=== PATIENT | female | born 1935 | race Caucasian/White ===

== ENCOUNTER 2021-02-13 15:34 | Inpatient (IN) | payer MEDICARE, BC ==
[~2021-02-13] VITALS: Ht 160 cm; Wt 129.3 kg
--- NOTE | 2021-02-13 16:07 | NUR ---
NEENA CALLED VM
--- NOTE | 2021-02-13 16:07 | NUR ---
NEENA CALLED VM
[2021-02-13 16:29] LABS: BASOPHILS % (AUTO) 0.6 % (0.0-2.0); EOSINOPHILS % (AUTO) 1.1 % (0.0-6.0); HEMATOCRIT 36 % (33-45); HEMOGLOBIN 11.5 g/dL (11.5-14.8); LYMPHOCYTES # (AUTO) 0.8 K/uL (0.8-4.8); LYMPHOCYTES % (AUTO) 17.2 % (20.0-44.0); MEAN CORPUSCULAR HGB CONC 32 g/dl (31.0-36.0); MEAN CORPUSCULAR VOLUME 95 fL (82-100); MONOCYTES # (AUTO) 0.4 K/uL (0.1-1.30); MONOCYTES % (AUTO) 9.5 % (2.0-12.0); NEUTROPHILS # (AUTO) 3.3 K/uL (1.8-8.9); NEUTROPHILS % (AUTO) 71.6 % (43.0-81.0); PLATELET COUNT (AUTO) 291 K/uL (150-450); RED BLOOD CELL COUNT(AUTO) 3.82 MIL/uL (4.0-5.2); WHITE BLOOD COUNT (AUTO) 4.6 K/uL (4.3-11.0)
[2021-02-13 16:38] LABS: CALCIUM, SERUM 8.2 mg/dL (8.5-10.1); CARBON DIOXIDE 26 mmol/L (21-32); CHLORIDE 103 mmol/L (98-107); CREATININE 1.3 mg/dL (0.6-1.3); GLUCOSE 110 mg/dL (74-106); SODIUM SERUM 137 mmol/L (136-145); UREA NITROGEN, BLOOD 15 mg/dL (7-18)
[2021-02-13 16:45] LABS: ALANINE AMINOTRANSFERASE 6 U/L (12-78); ALBUMIN 3.1 g/dL (3.4-5.0); ALKALINE PHOSPHATASE 106 U/L (46-116); ASPARTATE AMINOTRANSFERASE 15 U/L (15-37); BILIRUBIN,DIRECT 0.1 mg/dL (0.0-0.2); BILIRUBIN,TOTAL 0.4 mg/dL (0.2-1.0); TOTAL PROTEIN, SERUM 7.2 g/dL (6.4-8.2)
[2021-02-13 16:57] LABS: THYROID STIMULATING HORMONE 0.992 uIU/mL (0.358-3.74)
[2021-02-13 17:41] LABS: ACETAMINOPHEN < 0 ug/ml (10-30); ALCOHOL, BLOOD < 3 mg/dL (0-0)
[2021-02-13] MEDS ORDERED: GABA-532 PO (17:41)
[2021-02-13] MEDS ORDERED: METO25TA4 PO (17:41)
[2021-02-13] MEDS ORDERED: LOSA50TA39 PO (17:41)
[2021-02-13] MEDS ORDERED: QUET25TA PO (17:41)
[2021-02-13] MEDS ORDERED: ATOR40TA PO (17:41)
[2021-02-13] MEDS ORDERED: TRAZ-182 PO (17:41)
[2021-02-13] MEDS ORDERED: CITA20TA16 PO (17:41)
[2021-02-13] MEDS ORDERED: AMLO-212 PO (17:41)
--- NOTE | 2021-02-13 17:58 | NUR ---
CALLED [facility] [phone] IN [place] WILL CAME HERE AFTER.
--- NOTE | 2021-02-13 17:58 | NUR ---
CALLED [facility] [phone] IN [place] WILL CAME HERE AFTER.
[2021-02-13] MEDS ORDERED: DOCU-141 PO (18:07)
[2021-02-13] MEDS ORDERED: FERR325T23 PO (18:07)
[2021-02-13] MEDS ORDERED: ASPI-1169 PO (18:10)
--- NOTE | 2021-02-13 18:19 | NUR ---
GOT BED 214-1
--- NOTE | 2021-02-13 18:19 | NUR ---
GOT BED 214-1
[2021-02-13] MEDS ORDERED: ACETAMINOPHEN ES 500 MG TABLET ONE (19:58)
[2021-02-13] MEDS ORDERED: ACETAMINOPHEN ES 500 MG TABLET PO ONE (20:00)
[2021-02-13] MEDS ORDERED: LORAZEPAM INJ 2 MG/ML VIAL ONE (20:54)
[2021-02-13] MEDS ORDERED: LORAZEPAM INJ 2 MG/ML VIAL IM ONE (21:00)
--- NOTE | 2021-02-13 21:50 | NUR ---
PATIENT BEING TRASNFERED TO 214
--- NOTE | 2021-02-13 21:50 | NUR ---
PATIENT BEING TRASNFERED TO 214
--- NOTE | 2021-02-13 22:02 | NUR ---
REPORT GIVEN TO BRENDA WHEELER
--- NOTE | 2021-02-13 22:02 | NUR ---
REPORT GIVEN TO BRENDA WHEELER
[2021-02-13] MEDS ORDERED: BLOOD SUGAR DIAGNOSTIC 1 EACH STRIP IN ONE (23:00)
[2021-02-13] MEDS ORDERED: MAGNESIUM HYDROXIDE 30 ML UDC PO PRN (23:00)
[2021-02-13] MEDS ORDERED: TEMAZEPAM 7.5 MG CAPSULE PO PRN (23:00)
[2021-02-13] MEDS ORDERED: MAG HYDROX/AL HYDROX/SIMETH 30 ML UDC PO PRN (23:00)
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
[2021-02-14 02:21] VITALS: BP 158/66
[2021-02-14] MEDS ORDERED: Z GUARD REMEDY 4 OZ OINT TP PRN (02:30)
--- NOTE | 2021-02-14 03:40 | NUR ---
GPS RN NOTES: SPOKE WITH MARIA ANTONIA TO RECONCILE PATIENT MED MEDS.
--- NOTE | 2021-02-14 03:40 | NUR ---
GPS RN NOTES: SPOKE WITH MARIA ANTONIA TO RECONCILE PATIENT MED MEDS.
--- NOTE | 2021-02-14 06:37 | NUR ---
GPS RN NOTES: PATIENT IS HOSTILE AND AGGRESSIVE, REFUSED AM LABS, REFUSED DIAPER CHANGE.
--- NOTE | 2021-02-14 06:37 | NUR ---
GPS RN NOTES: PATIENT IS HOSTILE AND AGGRESSIVE, REFUSED AM LABS, REFUSED DIAPER CHANGE.
[2021-02-14 08:00] VITALS: BP 118/59
--- NOTE | 2021-02-14 10:27 | NUR ---
ESTRELLITA Initial Discharge Plan: Patient currently resides at [facility] located at [facility] [place] [address]; ([phone]). Patient would want to return back to her [facility] and Care. ESTRELLITA will work with the MD and treatment team to coordinate appropriate discharge.
--- NOTE | 2021-02-14 10:27 | NUR ---
Treatment Plan: Pt appeared to be confused and disorganized. Refused to sign treatment plan.
--- NOTE | 2021-02-14 10:27 | NUR ---
ESTRELLITA Initial Discharge Plan: Patient currently resides at [facility] located at [facility] [place] [address]; ([phone]). Patient would want to return back to her [facility] and Care. ESTRELLITA will work with the MD and treatment team to coordinate appropriate discharge.
--- NOTE | 2021-02-14 10:27 | NUR ---
Treatment Plan: Pt appeared to be confused and disorganized. Refused to sign treatment plan.
--- NOTE | 2021-02-14 11:29 | NUR ---
ESTRELLITA Family Contact: SW contacted patient's son Arsalan ([phone]) to gather collateral and discuss treatment/discharge plan. Arsalan was unavailable and this health underwriter left a detailed voicemail.
--- NOTE | 2021-02-14 11:29 | NUR ---
ESTRELLITA Family Contact: SW contacted patient's son Arsalan ([phone]) to gather collateral and discuss treatment/discharge plan. Arsalan was unavailable and this card writer hand left a detailed voicemail.
--- NOTE | 2021-02-14 11:45 | NUR ---
ESTRELLITA Family Contact: SW spoke with patient's son Arsalan ([phone]) who stated pt is currently residing at a [facility] and Care but he stated that he would want pt to go to a SNF. Arsalan is the DPOA of the pt and will send the documents to this SW.
--- NOTE | 2021-02-14 11:45 | NUR ---
ESTRELLITA Family Contact: SW spoke with patient's son Arsalan ([phone]) who stated pt is currently residing at a [facility] and Care but he stated that he would want pt to go to a SNF. Arsalan is the DPOA of the pt and will send the documents to this SW.
[2021-02-14] MEDS ORDERED: GABAPENTIN 100 MG CAPSULE PO SCH (13:00)
[2021-02-14] MEDS: Z GUARD REMEDY 4 OZ OINT TP SCH ×2 (13:53→21:49)
--- NOTE | 2021-02-14 14:56 | NUR ---
DPOA Documents: Patient's son Arsalan ([phone]) is the DPOA and sent the documents. SW placed in chart.
--- NOTE | 2021-02-14 14:56 | NUR ---
DPOA Documents: Patient's son Arsalan ([phone]) is the DPOA and sent the documents. SW placed in chart.
[2021-02-14 16:00] VITALS: BP 120/61
[2021-02-14 16:37] LABS: ALBUMIN 2.9 g/dL (3.4-5.0); BILIRUBIN,TOTAL 0.5 mg/dL (0.2-1.0); CALCIUM, SERUM 8.2 mg/dL (8.5-10.1); CREATININE 1.1 mg/dL (0.6-1.3); TOTAL PROTEIN, SERUM 6.6 g/dL (6.4-8.2)
[2021-02-14 16:41] LABS: CHOLESTEROL 134 mg/dL (<200); HDL CHOLESTEROL 58 mg/dL (40-60); LDL 59 mg/dL (0-99); TRIGLYCERIDES 100 mg/dL (30-150)
[2021-02-14] MEDS: LOSARTAN POTASSIUM 50 MG TABLET PO SCH (17:25)
[2021-02-14] MEDS: GABAPENTIN 100 MG CAPSULE PO SCH (17:26)
[2021-02-14] MEDS: QUETIAPINE FUMARATE 25 MG TABLET PO SCH ×2 (17:26→21:44)
[2021-02-14] MEDS: ATORVASTATIN 40 MG TABLET PO SCH (21:44)
[2021-02-15 08:00] VITALS: BP 129/97
[2021-02-15] MEDS: DOCUSATE SODIUM 100 MG CAPSULE PO SCH (08:19)
[2021-02-15] MEDS: FERROUS SULFATE (325 MG) 325 MG/TAB TABLET PO SCH (08:19)
[2021-02-15] MEDS: ASPIRIN 81 MG TAB.CHEW PO SCH (08:19)
[2021-02-15] MEDS: GABAPENTIN 100 MG CAPSULE PO SCH ×2 (08:19→17:30)
[2021-02-15] MEDS: QUETIAPINE FUMARATE 25 MG TABLET PO SCH ×2 (08:20→21:25)
[2021-02-15] MEDS: METOPROLOL SUCCINATE 25 MG TAB.SR.24H PO SCH (08:20)
[2021-02-15] MEDS: LOSARTAN POTASSIUM 50 MG TABLET PO SCH ×2 (08:21→17:30)
[2021-02-15] MEDS: AMLODIPINE BESYLATE 5 MG TABLET PO SCH (08:33)
[2021-02-15] MEDS: Z GUARD REMEDY 4 OZ OINT TP SCH ×2 (08:33→21:26)
--- NOTE | 2021-02-15 08:33 | NUR ---
Patient has psychotropic med and other bp meds in this morning, will hold Norvasc at this time. BP 129/97, p-70. Will continue to monitor.
--- NOTE | 2021-02-15 08:33 | NUR ---
Patient has psychotropic med and other bp meds in this morning, will hold Norvasc at this time. BP 129/97, p-70. Will continue to monitor.
[2021-02-15 16:00] VITALS: BP 139/67
[2021-02-15] MEDS ORDERED: GABAPENTIN 100 MG CAPSULE PO SCH ×2 (17:00→21:00)
[2021-02-15 20:31] VITALS: BP 141/97
[2021-02-15] MEDS: ATORVASTATIN 40 MG TABLET PO SCH (21:25)
[2021-02-16] MEDS: LORAZEPAM 0.5 MG TABLET PO PRN ×2 (01:43→15:03)
--- NOTE | 2021-02-16 01:43 | NUR ---
GPS NOTES: ANXIETY PATIENT IS ANXIOUS, RESTLESS AND AGITATED. PRN ATIVAN 0.5MG PO GIVEN. WILL CONTINUE TO MONITOR FOR PATIENT'S SAFETY.
--- NOTE | 2021-02-16 01:43 | NUR ---
GPS NOTES: ANXIETY PATIENT IS ANXIOUS, RESTLESS AND AGITATED. PRN ATIVAN 0.5MG PO GIVEN. WILL CONTINUE TO MONITOR FOR PATIENT'S SAFETY.
[2021-02-16 08:00] VITALS: BP 133/67
[2021-02-16] MEDS: ASPIRIN 81 MG TAB.CHEW PO SCH (08:57)
[2021-02-16] MEDS: FERROUS SULFATE (325 MG) 325 MG/TAB TABLET PO SCH (08:57)
[2021-02-16] MEDS: AMLODIPINE BESYLATE 5 MG TABLET PO SCH (08:57)
[2021-02-16] MEDS: GABAPENTIN 100 MG CAPSULE PO SCH ×2 (08:57→16:36)
[2021-02-16] MEDS: METOPROLOL SUCCINATE 25 MG TAB.SR.24H PO SCH (08:58)
[2021-02-16] MEDS: DOCUSATE SODIUM 100 MG CAPSULE PO SCH (08:58)
[2021-02-16] MEDS: QUETIAPINE FUMARATE 25 MG TABLET PO SCH ×3 (08:58→21:35)
[2021-02-16] MEDS: LOSARTAN POTASSIUM 50 MG TABLET PO SCH ×2 (08:58→16:36)
[2021-02-16] MEDS: Z GUARD REMEDY 4 OZ OINT TP SCH ×2 (09:03→21:13)
[2021-02-16 16:00] VITALS: BP 136/56
[2021-02-16] MEDS: ACETAMINOPHEN 325 MG TABLET PO PRN (16:52)
--- NOTE | 2021-02-16 16:53 | NUR ---
HEADACHE-TYLENOL GIVEN PATIENT COMPLAINS OF HEADACHE. TYLENOL 650MG PO GIVEN NEEDED. WILL MONITOR.
--- NOTE | 2021-02-16 16:53 | NUR ---
HEADACHE-TYLENOL GIVEN PATIENT COMPLAINS OF HEADACHE. TYLENOL 650MG PO GIVEN NEEDED. WILL MONITOR.
[2021-02-16 20:12] VITALS: BP 108/60
[2021-02-16 20:16] VITALS: BP 108/60
[2021-02-16] MEDS: ATORVASTATIN 40 MG TABLET PO SCH (21:43)
--- NOTE | 2021-02-16 21:45 | NUR ---
GPS RN NOTE: REFUSED SKIN ASSESSMENT PATIENT REFUSED FULL BODY SKIN ASSESSMENT X3 TONIGHT. GOT AGITATED, PARANOID, AGGRESSIVE TO WARDS STAFF, YELLING. PATIENT IS UNCOOPERATIVE WITH SKIN ASSESSMENT. VISIBLY NOTED SKIN DISCOLORATION TO BOTH ARMS BUT UNABLE TO ASSESS FULL BODY DUE TO PATIENT'S AGGRESSIVE BEHAVIOR.
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
[2021-02-17 08:00] VITALS: BP 127/69
[2021-02-17] MEDS: AMLODIPINE BESYLATE 5 MG TABLET PO SCH (08:14)
[2021-02-17] MEDS: DOCUSATE SODIUM 100 MG CAPSULE PO SCH (08:14)
[2021-02-17] MEDS: FERROUS SULFATE (325 MG) 325 MG/TAB TABLET PO SCH (08:14)
[2021-02-17] MEDS: METOPROLOL SUCCINATE 25 MG TAB.SR.24H PO SCH (08:15)
[2021-02-17] MEDS: LOSARTAN POTASSIUM 50 MG TABLET PO SCH ×2 (08:15→16:21)
[2021-02-17] MEDS: QUETIAPINE FUMARATE 25 MG TABLET PO SCH ×3 (08:16→20:40)
[2021-02-17] MEDS: GABAPENTIN 100 MG CAPSULE PO SCH ×2 (08:16→16:20)
[2021-02-17] MEDS: ASPIRIN 81 MG TAB.CHEW PO SCH (08:16)
[2021-02-17] MEDS: Z GUARD REMEDY 4 OZ OINT TP SCH ×2 (08:20→20:42)
--- NOTE | 2021-02-17 13:24 | NUR ---
PT'S HANDS L+R SHOW DISCOLORATION. PICTURE TAKEN AND PLACED IN THE CHART. PT'S SON STATED THAT DISCOLORATION WAS PRESENT SINCE 02/16/21. WOUND CARE CONSULT ENTERED.
--- NOTE | 2021-02-17 13:24 | NUR ---
PT'S HANDS L+R SHOW DISCOLORATION. PICTURE TAKEN AND PLACED IN THE CHART. PT'S SON STATED THAT DISCOLORATION WAS PRESENT SINCE 02/16/21. WOUND CARE CONSULT ENTERED.
[2021-02-17 16:00] VITALS: BP 123/66
[2021-02-17 20:00] VITALS: BP 138/70
[2021-02-17] MEDS: ATORVASTATIN 40 MG TABLET PO SCH (21:10)
[2021-02-18 08:00] VITALS: BP 137/69
[2021-02-18] MEDS: Z GUARD REMEDY 4 OZ OINT TP SCH ×2 (08:11→20:30)
[2021-02-18] MEDS: AMLODIPINE BESYLATE 5 MG TABLET PO SCH (08:14)
[2021-02-18] MEDS: GABAPENTIN 100 MG CAPSULE PO SCH ×2 (08:14→17:00)
[2021-02-18] MEDS: ASPIRIN 81 MG TAB.CHEW PO SCH (08:14)
[2021-02-18] MEDS: QUETIAPINE FUMARATE 25 MG TABLET PO SCH ×4 (08:15→20:30)
[2021-02-18] MEDS: METOPROLOL SUCCINATE 25 MG TAB.SR.24H PO SCH (08:15)
[2021-02-18] MEDS: FERROUS SULFATE (325 MG) 325 MG/TAB TABLET PO SCH (08:16)
[2021-02-18] MEDS: DOCUSATE SODIUM 100 MG CAPSULE PO SCH (08:16)
[2021-02-18] MEDS: LOSARTAN POTASSIUM 50 MG TABLET PO SCH ×2 (08:16→16:59)
--- NOTE | 2021-02-18 09:10 | NUR ---
DPOA Documents: Patient's son Arsalan ([phone]) is the DPOA and was concerned in regards to patient's care at the hospital. SW explained that pt has been very aggressive physically and verbally. Son is not understanding of patient's current condition declining. Son wants pt to be discharged. SW explained pt would need a safe place. He stated he is trying to find her an Assisted Living.
--- NOTE | 2021-02-18 09:10 | NUR ---
DPOA Documents: Patient's son Arsalan ([phone]) is the DPOA and was concerned in regards to patient's care at the hospital. SW explained that pt has been very aggressive physically and verbally. Son is not understanding of patient's current condition declining. Son wants pt to be discharged. SW explained pt would need a safe place. He stated he is trying to find her an Assisted Living.
--- NOTE | 2021-02-18 11:54 | NUR ---
SNF Referral: SW sent clinicals to [facility] to vinh Osuna ([phone]) for placement. SW sent H & P, progress notes, and medication list.
--- NOTE | 2021-02-18 11:54 | NUR ---
SNF Referral: SW sent clinicals to [facility] to vinh Osuna ([phone]) for placement. SW sent H & P, progress notes, and medication list.
--- NOTE | 2021-02-18 12:54 | NUR ---
SNF Contact: SW received a call from [facility] to vinh Osuna ([phone]) who stated they cannot accept pt due to behavioral issues.
--- NOTE | 2021-02-18 12:54 | NUR ---
SNF Contact: SW received a call from [facility] to vinh Osuna ([phone]) who stated they cannot accept pt due to behavioral issues.
--- NOTE | 2021-02-18 13:29 | NUR ---
Court Hearing: Patient's court hearing for 3370 was today and it was upheld for GD.
--- NOTE | 2021-02-18 13:29 | NUR ---
Court Hearing: Patient's court hearing for 5610 was today and it was upheld for GD.
--- NOTE | 2021-02-18 13:31 | NUR ---
SNF Referral: ESTRELLITA sent clinicals to Zoey justice from [facility] ([phone]) for placement option. ESTRELLITA sent H & P, progress notes, and medication list.
--- NOTE | 2021-02-18 13:31 | NUR ---
SNF Referral: ESTRELLITA sent clinicals to Zoey justice from [facility] ([phone]) for placement option. ESTRELLITA sent H & P, progress notes, and medication list.
--- NOTE | 2021-02-18 15:15 | NUR ---
SNF Contact: SW spoke with Zoey justice from [facility] ([phone]) who stated they are considering to accept pt.
--- NOTE | 2021-02-18 15:15 | NUR ---
SNF Contact: SW spoke with Zoey justice from [facility] ([phone]) who stated they are considering to accept pt.
--- NOTE | 2021-02-18 15:15 | NUR ---
SW Family Contact: SW spoke with patient's DPOA Arsalan ([phone]) and stated pt is accepted at [facility] ([phone]). He stated that he is leaning towards on finding the pt a Board and Care.
--- NOTE | 2021-02-18 15:15 | NUR ---
SW Family Contact: SW spoke with patient's DPOA Arsalan ([phone]) and stated pt is accepted at [facility] ([phone]). He stated that he is leaning towards on finding the pt a Board and Care.
[2021-02-18 16:00] VITALS: BP 113/55
[2021-02-18 17:52] LABS: BASOPHILS % (AUTO) 0.5 % (0.0-2.0); EOSINOPHILS % (AUTO) 0.6 % (0.0-6.0); HEMATOCRIT 36 % (33-45); HEMOGLOBIN 11.6 g/dL (11.5-14.8); LYMPHOCYTES % (AUTO) 16.1 % (20.0-44.0); MEAN CORPUSCULAR HGB CONC 33 g/dl (31.0-36.0); MEAN CORPUSCULAR VOLUME 94 fL (82-100); MONOCYTES # (AUTO) 0.6 K/uL (0.1-1.30); MONOCYTES % (AUTO) 9.1 % (2.0-12.0); NEUTROPHILS # (AUTO) 4.6 K/uL (1.8-8.9); NEUTROPHILS % (AUTO) 73.7 % (43.0-81.0); PLATELET COUNT (AUTO) 266 K/uL (150-450); WHITE BLOOD COUNT (AUTO) 6.2 K/uL (4.3-11.0)
[2021-02-18 18:31] LABS: BILIRUBIN,TOTAL 0.6 mg/dL (0.2-1.0); CALCIUM, SERUM 8.2 mg/dL (8.5-10.1); CREATININE 1.1 mg/dL (0.6-1.3); POTASSIUM 3.9 mmol/L (3.5-5.1); TOTAL PROTEIN, SERUM 6.9 g/dL (6.4-8.2)
--- NOTE | 2021-02-18 20:30 | NUR ---
RN NOTE: REFUSED SKIN ASSESSMENT PATIENT REFUSED FULL BODY SKIN REASSESSMENT ENCOURAGED X3 . GOT AGITATED, PARANOID, AGGRESSIVE TO WARDS STAFF, YELLING, SCREAMING AND KEEP REAPITING TO THE PRIMARY NURSE GET OUT OF FROM MY HOUSE . REOERITION PROVIDED TO THE PATIENT YOUR IN THE HOSPITAL , PT. REFUSED TO CARE , PATIENT IS UNCOOPERATIVE WITH SKIN ASSESSMENT. PT. SKIN IS VERY FRAGILE EASILY TO SKIN DISCOLORATIONS AND EASILY TO SKIN TEAR.VISIBLY NOTED SELF INFLICTED MULTIPLE SKIN DISCOLORATIONS BODY AREAS BUT UNABLE TO ASSESS FULL BODY DUE TO PATIENT'S AGGRESSIVE BEHAVIOR. PER PT. MY SKIN IS FINE I NO NEED ANY SKIN ASSESSMENT.
[2021-02-18 21:10] VITALS: BP 124/71
[2021-02-18] MEDS: ATORVASTATIN 40 MG TABLET PO SCH (21:38)
[2021-02-18] MEDS: LORAZEPAM 0.5 MG TABLET PO PRN (21:57)
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
[2021-02-19] MEDS: Z GUARD REMEDY 4 OZ OINT TP SCH ×2 (08:59→21:57)
[2021-02-19 09:00] VITALS: BP 123/48
[2021-02-19] MEDS: METOPROLOL SUCCINATE 25 MG TAB.SR.24H PO SCH (09:00)
[2021-02-19] MEDS: LOSARTAN POTASSIUM 50 MG TABLET PO SCH ×2 (09:00→16:51)
[2021-02-19] MEDS: AMLODIPINE BESYLATE 5 MG TABLET PO SCH (09:00)
--- NOTE | 2021-02-19 09:07 | NUR ---
WOUND CARE CONSULT: LIMITED ASSESSMENT DUE TO PT FEARFUL AND VERY SENSITIVE TO TOUCH. PT COMBATIVE AT TIMES PER STAFF. DRY SKIN NOTED TO HANDS AND ARMS WITH DISCOLORATION. ADMISSION PHOTOS INDICATE RASHES TO SKIN FOLDS. RECOMMENDATIONS MADE FOR SKIN PROTECTION. DISCUSSED WITH NURSING STAFF. MD IN AGREEMENT WITH PLAN OF CARE.
[2021-02-19] MEDS: DOCUSATE SODIUM 100 MG CAPSULE PO SCH (09:10)
[2021-02-19] MEDS: ASPIRIN 81 MG TAB.CHEW PO SCH (09:10)
[2021-02-19] MEDS: FERROUS SULFATE (325 MG) 325 MG/TAB TABLET PO SCH (09:11)
[2021-02-19] MEDS: GABAPENTIN 100 MG CAPSULE PO SCH ×2 (09:11→16:51)
[2021-02-19] MEDS: QUETIAPINE FUMARATE 25 MG TABLET PO SCH ×4 (09:13→21:57)
--- NOTE | 2021-02-19 09:44 | NUR ---
ESTRELLITA Note: SW spoke with patient and patient appeared to be paranoid. Patient stated "medical doctor told me to open my legs, why the fuck would he want to do that". Patient was verbally abusive.
[2021-02-19 11:18] VITALS: BP 123/48
[2021-02-19] MEDS: MINERAL OIL/PETROLATUM,WHITE 120 GM JAR TP SCH (11:39)
--- NOTE | 2021-02-19 14:17 | NUR ---
Coordination of Care: Per patient's son Arsalan request, [facility] accepted pt. ESTRELLITA spoke with Bryanna ([phone]) who stated that they are accepting pt. ESTRELLITA sent H & P, labs, and medication list. Per Bryanna's request ([phone]) ESTRELLITA sent clinicals to [facility] ([phone]) (F:[phone]).
--- NOTE | 2021-02-19 14:17 | NUR ---
Coordination of Care: Per patient's son Arsalan request, [facility] accepted pt. ESTRELLITA spoke with Bryanna ([phone]) who stated that they are accepting pt. ESTRELLITA sent H & P, labs, and medication list. Per Bryanna's request ([phone]) ESTRELLITA sent clinicals to [facility] ([phone]) (F:[phone]).
--- NOTE | 2021-02-19 15:27 | NUR ---
HH: ESTRELLITA coordinated with Home health [facility] admin Mary ([phone]) who stated she will send a nurse on 02/22/21.
--- NOTE | 2021-02-19 15:27 | NUR ---
HH: ESTRELLITA coordinated with Home health [facility] admin Mary ([phone]) who stated she will send a nurse on 02/22/21.
[2021-02-19 16:00] VITALS: BP 150/70
--- NOTE | 2021-02-19 16:45 | NUR ---
AT APPROXIMATELY 1630 THE PATIENT CALLED COMPLAINING OF FINGER PAIN STATING " I THINK I BROKE MY FINGER ". UPON FURTHER ASSESSMENT, THE THIRD DIGIT ON HER LEFT HAND APPEARED SWOLLEN AND OFF MIDLINE. DR COE WAS IMMEDIATELY CONTACTED AND ORDERED A STAT LEFT HAND XRAY. PT GIVEN TYLENOL 650MG PRN FOR PAIN. NURSING HYDROBLASTER AND TRESTLE MECHANIC INFORMED. PT'S FAMILY MEMBER (SON DELIO) WAS CALLED AND INFORMED OF FINDING AND ASSESSMENT TO WHICH HE WAS GRATEFUL AND EXPECTS TO BE CONTACTED WITH RESULTS AND FURTHER THERAPY ORDERS IF ANY ARE GIVEN. INCIDENT REPORT COMPLETED AND FILED. PICTURE TAKEN AND PLACED IN PT'S CHART. AWAITING XRAY REPORT IN ORDER TO INFORM MD. WILL ENDORSE IN COMING SHIFT PERTINENTLY.
--- NOTE | 2021-02-19 16:45 | NUR ---
AT APPROXIMATELY 1630 THE PATIENT CALLED COMPLAINING OF FINGER PAIN STATING " I THINK I BROKE MY FINGER ". UPON FURTHER ASSESSMENT, THE THIRD DIGIT ON HER LEFT HAND APPEARED SWOLLEN AND OFF MIDLINE. DR COE WAS IMMEDIATELY CONTACTED AND ORDERED A STAT LEFT HAND XRAY. PT GIVEN TYLENOL 650MG PRN FOR PAIN. NURSING SEALING MACHINE OPERATOR AND CONTENT CREATION MANAGER INFORMED. PT'S FAMILY MEMBER (SON DELIO) WAS CALLED AND INFORMED OF FINDING AND ASSESSMENT TO WHICH HE WAS GRATEFUL AND EXPECTS TO BE CONTACTED WITH RESULTS AND FURTHER THERAPY ORDERS IF ANY ARE GIVEN. INCIDENT REPORT COMPLETED AND FILED. PICTURE TAKEN AND PLACED IN PT'S CHART. AWAITING XRAY REPORT IN ORDER TO INFORM MD. WILL ENDORSE IN COMING SHIFT PERTINENTLY.
[2021-02-19] MEDS: ACETAMINOPHEN 325 MG TABLET PO PRN (16:51)
[2021-02-19] MEDS: CLOTRIMAZOLE 1% 15 GM TUBE TP SCH (16:53)
--- NOTE | 2021-02-19 18:52 | NUR ---
DR BARNES CONTACTED VIA [employer] IN ORDER TO MAKE HIM AWARE OF HAND XRAY REPORT. AWAITING CALL BACK.
--- NOTE | 2021-02-19 18:52 | NUR ---
DR BARNES CONTACTED VIA [employer] IN ORDER TO MAKE HIM AWARE OF HAND XRAY REPORT. AWAITING CALL BACK.
--- NOTE | 2021-02-19 19:55 | NUR ---
RN NOTES : PAGED EPIC EXCHANGE REGARDING ABOUT PT. LEFT HAND THIRD DIGIT SWOLLEN FINGER LEFT MESSAGE AWAITING MD CALL BACK .
--- NOTE | 2021-02-19 19:55 | NUR ---
RN NOTES : PAGED EPIC EXCHANGE REGARDING ABOUT PT. LEFT HAND THIRD DIGIT SWOLLEN FINGER LEFT MESSAGE AWAITING MD CALL BACK .
[2021-02-19 20:30] VITALS: BP 122/65
[2021-02-19] MEDS ORDERED: IBUPROFEN 600 MG TABLET PO ONE (20:30)
--- NOTE | 2021-02-19 20:33 | NUR ---
GPS RN NOTE: DR. WALLER CALLED BACK, REVIWED PATIENT'S LEFT HAND/FINGER X RAY RESULTS, LABS, MEDICATION LIST AND PATIENT' HISTORY. CONTINUOUS CRUSHER OPERATOR READ LEFT HAND/FINGER X RAY RESULTS TO DR. WALLER. MD ORDERED IBUPROFEN 600 MG PO ONCE AT THIS TIME FOR PAIN MANAGEMENT, PER MD IF IBUPROFEN IS EFFECTIVE, THEN CONTINUE WITH IBUPROFEN 600 MG PO Q6H PRN FOR LEFT HAND/FINGER PAIN. ORDER NOTED AND CARRIED OUT. ALSO VERIFIED WITH MD IF ORTHO CONSULT NEEDED, PER DR. WALLER TO FOLLOW UP WITH AM MD TOMORROW FOR FURTHER INTERVENTIONS. NO ORTHO CONSULT ORDER AT THIS TIME. CONTINUOUS CRUSHER OPERATOR CALLED PATIENT'S SON ASMITA AT [phone] AND UPDATED ABOUT PATIENT'S CURRENT HEALTH CONDITION, BEHAVIOR AND LEFT HAND/FINGER X RAY RESULTS. WILL OFFER IBUPROFEN ORDERED BY FOR PAIN MANAGEMENT. WILL CONTINUE TO MONITOR THE PATIENT CLOSELY FOR ANY CHANGE OF CONDITION.
--- NOTE | 2021-02-19 20:33 | NUR ---
GPS RN NOTE: DR. WALLER CALLED BACK, REVIWED PATIENT'S LEFT HAND/FINGER X RAY RESULTS, LABS, MEDICATION LIST AND PATIENT' HISTORY. PARTS SALES MANAGER READ LEFT HAND/FINGER X RAY RESULTS TO DR. WALLER. MD ORDERED IBUPROFEN 600 MG PO ONCE AT THIS TIME FOR PAIN MANAGEMENT, PER MD IF IBUPROFEN IS EFFECTIVE, THEN CONTINUE WITH IBUPROFEN 600 MG PO Q6H PRN FOR LEFT HAND/FINGER PAIN. ORDER NOTED AND CARRIED OUT. ALSO VERIFIED WITH MD IF ORTHO CONSULT NEEDED, PER DR. WALLER TO FOLLOW UP WITH AM MD TOMORROW FOR FURTHER INTERVENTIONS. NO ORTHO CONSULT ORDER AT THIS TIME. PARTS SALES MANAGER CALLED PATIENT'S SON ASMITA AT [phone] AND UPDATED ABOUT PATIENT'S CURRENT HEALTH CONDITION, BEHAVIOR AND LEFT HAND/FINGER X RAY RESULTS. WILL OFFER IBUPROFEN ORDERED BY FOR PAIN MANAGEMENT. WILL CONTINUE TO MONITOR THE PATIENT CLOSELY FOR ANY CHANGE OF CONDITION.
--- NOTE | 2021-02-19 20:52 | NUR ---
RN NOTES: PT. C/O PAIN ON LEFT HAND THIRD DIGT, BUT UNABLE SCALE PAIN DUE TO CONFUSION , PRN MOTRIN 600 MG X1 PO GIVEN , PER MD ODERS WILL CONTINUE TO MONITOR.
--- NOTE | 2021-02-19 21:52 | NUR ---
RN NOTES: MOTRIN 600 MG PO EFFECTIVE AT THIS TIME , PER PT. STATES I AM FEELING BETTER AT THIS TIME . WILL CONTINUE TO MONITOR.
--- NOTE | 2021-02-19 21:52 | NUR ---
RN NOTES: MOTRIN 600 MG PO EFFECTIVE AT THIS TIME , PER PT. STATES I AM FEELING BETTER AT THIS TIME . WILL CONTINUE TO MONITOR.
[2021-02-19] MEDS: ATORVASTATIN 40 MG TABLET PO SCH (21:58)
--- NOTE | 2021-02-19 21:59 | NUR ---
RN NOTES: DR. ATKINSON NOTIFIED REGARDING ABOUT PT. LEFT HAND / FINGER RESULTS , NO NEW ORDERS GIVEN AT THIS TIME .
--- NOTE | 2021-02-19 21:59 | NUR ---
RN NOTES: DR. ATKINSON NOTIFIED REGARDING ABOUT PT. LEFT HAND / FINGER RESULTS , NO NEW ORDERS GIVEN AT THIS TIME .
--- NOTE | 2021-02-19 23:10 | NUR ---
RN NOTES: PT.COMFORTLY RESTING ,SLEEPING ,SNORING ,AT THIS TIME , NO ACUTE DISTRESS NOTED , WILL CONTINUE TO MONITOR.
--- NOTE | 2021-02-19 23:10 | NUR ---
RN NOTES: PT.COMFORTLY RESTING ,SLEEPING ,SNORING ,AT THIS TIME , NO ACUTE DISTRESS NOTED , WILL CONTINUE TO MONITOR.
--- NOTE | 2021-02-20 05:56 | NUR ---
RN NOTE: PATIENT SLEEPING COMFORTABLY IN HER ROOM, DURING WEBSPHERE DEVELOPER PT. SLEPT WELL 8 HOURS, NO ACUTE DISTRESS NOTED, NO CHANGE OF CONDTION NOTED, WILL ENDORSE TO AM RN FOR CONTINUITY OF CARE.
--- NOTE | 2021-02-20 05:56 | NUR ---
RN NOTE: PATIENT SLEEPING COMFORTABLY IN HER ROOM, DURING ACTUARIAL CONSULTANT PT. SLEPT WELL 8 HOURS, NO ACUTE DISTRESS NOTED, NO CHANGE OF CONDTION NOTED, WILL ENDORSE TO AM RN FOR CONTINUITY OF CARE.
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
[2021-02-20 08:00] VITALS: BP 116/60
--- NOTE | 2021-02-20 09:02 | NUR ---
ESTRELLITA Note: BRENDA Sarah re-checked patient's weight and patient is 191.5 lb.
--- NOTE | 2021-02-20 09:02 | NUR ---
ESTRELILTA Note: BRENDA Sarah re-checked patient's weight and patient is 191.5 lb.
[2021-02-20] MEDS: DOCUSATE SODIUM 100 MG CAPSULE PO SCH (09:18)
[2021-02-20] MEDS: FERROUS SULFATE (325 MG) 325 MG/TAB TABLET PO SCH (09:18)
[2021-02-20] MEDS: GABAPENTIN 100 MG CAPSULE PO SCH ×2 (09:18→17:24)
[2021-02-20] MEDS: AMLODIPINE BESYLATE 5 MG TABLET PO SCH (09:19)
[2021-02-20] MEDS: METOPROLOL SUCCINATE 25 MG TAB.SR.24H PO SCH (09:19)
[2021-02-20] MEDS: LOSARTAN POTASSIUM 50 MG TABLET PO SCH ×2 (09:19→17:24)
[2021-02-20] MEDS: ASPIRIN 81 MG TAB.CHEW PO SCH (09:19)
[2021-02-20] MEDS: QUETIAPINE FUMARATE 25 MG TABLET PO SCH ×4 (09:21→20:38)
[2021-02-20] MEDS: MINERAL OIL/PETROLATUM,WHITE 120 GM JAR TP SCH (12:11)
[2021-02-20] MEDS: Z GUARD REMEDY 4 OZ OINT TP SCH ×2 (12:11→20:39)
[2021-02-20] MEDS: CLOTRIMAZOLE 1% 15 GM TUBE TP SCH ×2 (12:18→17:25)
[2021-02-20] MEDS: ACETAMINOPHEN 325 MG TABLET PO PRN (13:07)
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
[2021-02-20] MEDS: IBUPROFEN 600 MG TABLET PO PRN (14:43)
[2021-02-20 16:00] VITALS: BP 115/63
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
[2021-02-20 20:00] VITALS: BP 127/66
[2021-02-20] MEDS: ATORVASTATIN 40 MG TABLET PO SCH (21:12)
[2021-02-21] MEDS: IBUPROFEN 600 MG TABLET PO PRN (06:25)
--- NOTE | 2021-02-21 06:56 | NUR ---
RN NOTES: PT. C/O PAIN 3/10 PRN MOTRIN 600MG PO GIVEN , PER PT. REQUEST WILL CONTINUE TO MONITOR.
--- NOTE | 2021-02-21 06:56 | NUR ---
RN NOTES: PT. C/O PAIN 3/10 PRN MOTRIN 600MG PO GIVEN , PER PT. REQUEST WILL CONTINUE TO MONITOR.
--- NOTE | 2021-02-21 07:02 | NUR ---
RN NOTES: PT. REFUSED SKIN ASSESSMENT , ENCOURAGED X 3 RISKS AND BENEFITS EXPLINED , PT. STRONGLY REFUSED , PT. BEHAVIOR UNCOOPERATIVE ANXIOUS , EASILY AGITATED, PER PT.STATES MY SKIN IS FINE DONT TOUCH ME,LEAVE ME ALONE , PT. REFUSED TO APPLY SKIN BARRIER, SKIN MOISTURES CREAM., WILL ENDORSE TO AM NURSE FOR CONTINUITY OF CARE.
--- NOTE | 2021-02-21 07:17 | NUR ---
RN NOTES: COVID ANTIGEN SPECIMEN COLLECT AND SEND TO THE LAB.
--- NOTE | 2021-02-21 07:17 | NUR ---
RN NOTES: COVID ANTIGEN SPECIMEN COLLECT AND SEND TO THE LAB.
[2021-02-21 08:00] VITALS: BP 114/55
--- NOTE | 2021-02-21 08:49 | NUR ---
Called the office of Dr. Garza for the consult and spoke to the compressor operator adjuster Teresita and said she will inform
--- NOTE | 2021-02-21 08:49 | NUR ---
Called the office of Dr. Garza for the consult and spoke to the synthetic resin operator Teresita and said she will inform
--- NOTE | 2021-02-21 09:03 | NUR ---
ESTRELLITA Family Contact: ESTRELLITA spoke with patient's DPOA Arsalan ([phone]) and listened to his concerns. He stated that he wants pt discharged soon. ESTRELLITA explained that orthopedic needs to evaluate pt to rule out any issues regarding her hand.
--- NOTE | 2021-02-21 09:03 | NUR ---
ESTRELLITA Family Contact: ESTRELLITA spoke with patient's DPOA Arsalan ([phone]) and listened to his concerns. He stated that he wants pt discharged soon. ESTRELLITA explained that orthopedic needs to evaluate pt to rule out any issues regarding her hand.
[2021-02-21] MEDS: FERROUS SULFATE (325 MG) 325 MG/TAB TABLET PO SCH (09:04)
[2021-02-21] MEDS: QUETIAPINE FUMARATE 25 MG TABLET PO SCH ×2 (09:04→12:35)
[2021-02-21] MEDS: GABAPENTIN 100 MG CAPSULE PO SCH (09:04)
[2021-02-21] MEDS: ASPIRIN 81 MG TAB.CHEW PO SCH (09:04)
[2021-02-21] MEDS: METOPROLOL SUCCINATE 25 MG TAB.SR.24H PO SCH (09:05)
[2021-02-21] MEDS: AMLODIPINE BESYLATE 5 MG TABLET PO SCH (09:05)
[2021-02-21] MEDS: LOSARTAN POTASSIUM 50 MG TABLET PO SCH (09:05)
[2021-02-21] MEDS: DOCUSATE SODIUM 100 MG CAPSULE PO SCH (09:05)
[2021-02-21] MEDS: CLOTRIMAZOLE 1% 15 GM TUBE TP SCH (09:23)
[2021-02-21] MEDS: MINERAL OIL/PETROLATUM,WHITE 120 GM JAR TP SCH (09:23)
[2021-02-21] MEDS: Z GUARD REMEDY 4 OZ OINT TP SCH (09:23)
--- NOTE | 2021-02-21 10:04 | NUR ---
Individual Therapy: SW met with patient to conduct brief therapy. Patient presented with low mood and stated "I just want to go home". Patient did appear to be improving and has not been verbally abusive.
--- NOTE | 2021-02-21 10:55 | NUR ---
ESTRELLITA Family Contact: ESTRELLITA and Rigo RN spoke with patient's DPOA Arsalan ([phone]) in regards to Orthopedic recommendation. Explained to family of Dr. Garza's recommendation that patient's finger has been dislocated and the doctor would need to locate the finger bedside or pt would need surgery. Arsalan verbally gave consent that he would want the doctor to treat the pt bedside and not surgery. ESTRELLITA also sent Arsalan consent form to sign.
--- NOTE | 2021-02-21 10:55 | NUR ---
ESTRELLITA Family Contact: ESTRELLITA and Rigo RN spoke with patient's DPOA Arsalan ([phone]) in regards to Orthopedic recommendation. Explained to family of Dr. Garza's recommendation that patient's finger has been dislocated and the doctor would need to locate the finger bedside or pt would need surgery. Arsalan verbally gave consent that he would want the doctor to treat the pt bedside and not surgery. ESTRELLITA also sent Arsalan consent form to sign.
[2021-02-21] MEDS ORDERED: LIDOCAINE 1% INJ 50 ML MDV IJ ONE (11:00)
--- NOTE | 2021-02-21 11:00 | NUR ---
Around 11am, Dr. Garza did a closed reduction under finger block left long finger dislocation at bedside, consents obtained from [facility], patient made aware of the situation and agreed to do the procedure. Patient tolerated procedure well, left middle finger splinted with tongue depressor and taped by Dr. Garza (Ortho), patient verbalized gratitude, preferred not to have a pain medication for now, will monitor closely for any changes. Patient also preferred not to have photo taken of the left middle finger, explained risks and benefits thrice and hospital protocol, still refused, respected patient's wishes.
--- NOTE | 2021-02-21 11:00 | NUR ---
Around 11am, Dr. Garza did a closed reduction under finger block left long finger dislocation at bedside, consents obtained from [facility], patient made aware of the situation and agreed to do the procedure. Patient tolerated procedure well, left middle finger splinted with tongue depressor and taped by Dr. Garza (Ortho), patient verbalized gratitude, preferred not to have a pain medication for now, will monitor closely for any changes. Patient also preferred not to have photo taken of the left middle finger, explained risks and benefits thrice and hospital protocol, still refused, respected patient's wishes.
--- NOTE | 2021-02-21 11:08 | NUR ---
Consent Form: Patient's son RIDGE Arriaza ([phone]) sent the consent for bedside procedure. Addendum: 02/21/21 at 1121 by ESTRELLITA KIRBY Placed in patient's chart.
--- NOTE | 2021-02-21 11:08 | NUR ---
Consent Form: Patient's son RIDGE Arriaza ([phone]) sent the consent for bedside procedure. Addendum: 02/21/21 at 1121 by ESTRELLITA KIRBY Placed in patient's chart.
--- NOTE | 2021-02-21 13:15 | NUR ---
Called Dr. Garza's office (phone: [phone]) to relay xray results of the left hand s/p closed reduction of the left finger, spoke to Nuvia and she said she will page Dr. Garza, waiting for MD to call back.
--- NOTE | 2021-02-21 13:15 | NUR ---
Called Dr. Garza's office (phone: [phone]) to relay xray results of the left hand s/p closed reduction of the left finger, spoke to Nuvia and she said she will page Dr. Garza, waiting for MD to call back.
--- NOTE | 2021-02-21 14:07 | NUR ---
Called Dr. Garza's office (phone: [phone]) to follow up regarding relaying xray results of the left hand s/p closed reduction of the left finger, spoke to Erika and she said Dr. Garza is doing surgery right now, will follow up.
--- NOTE | 2021-02-21 14:07 | NUR ---
Called Dr. Garza's office (phone: [phone]) to follow up regarding relaying xray results of the left hand s/p closed reduction of the left finger, spoke to Erika and she said Dr. Garza is doing surgery right now, will follow up.
--- NOTE | 2021-02-21 15:05 | NUR ---
Called Dr. Garza's office (phone: [phone]) spoke to Senthil and she said Dr. Garza is still doing surgery and she does not know how many surgeries he's doing and does not know what time he will finish. Senthil gave Dr. Garza's personal number, attempted to call number and left a voice message, waiting for Dr. Garza to call back, will follow up.
--- NOTE | 2021-02-21 15:05 | NUR ---
Called Dr. Garza's office (phone: [phone]) spoke to Senthil and she said Dr. Garza is still doing surgery and she does not know how many surgeries he's doing and does not know what time he will finish. Senthil gave Dr. Garza's personal number, attempted to call number and left a voice message, waiting for Dr. Garza to call back, will follow up.
--- NOTE | 2021-02-21 15:30 | NUR ---
Received a call back from Dr. Garza, xray of left hand impressions read to MD with new orders as follows: 1. patient cleared for discharge today, 2. make a follow up appointment with Dr. Garza in 1-2 weeks at [place] office (social work manager made aware), 3. keep the splint on, orders noted and carried out. Xray results of left hand and consent form (needs signature and clarification from MD) faxed to Dr. Garza's office ([phone]).
--- NOTE | 2021-02-21 15:30 | NUR ---
Received a call back from Dr. Garza, xray of left hand impressions read to MD with new orders as follows: 1. patient cleared for discharge today, 2. make a follow up appointment with Dr. Garza in 1-2 weeks at [place] office (rn social services made aware), 3. keep the splint on, orders noted and carried out. Xray results of left hand and consent form (needs signature and clarification from MD) faxed to Dr. Garza's office ([phone]).
--- NOTE | 2021-02-21 15:33 | NUR ---
SW Discharge Note: Patient will be discharged to [facility] located at [address], [place] [address]; ([phone]). Patients son Bryan Fabian ([phone]) will pickler helper pt at 4PM. Patients son RIDGE Arriaza ([phone]) is aware and agreeable. Admin Bryanna ([phone]) is accepting pt. Patient denies visual/auditory hallucinations. Patient denies suicidal or homicidal ideation. Patient will follow up with Dr. Harry Garcia who will monitor and provide her psychotropic medications at the facility. SW coordinate with [facility] admin Mary ([phone]) who stated will send a nurse on 02/22/21. Patient will follow up with Dr. Garza located at [address], [place] [address]; , SW notified of this to patient's son Arsalan SABILLON ([phone]). Patient presents with euthymic mood and congruent affect.
--- NOTE | 2021-02-21 15:33 | NUR ---
SW Discharge Note: Patient will be discharged to [facility] located at [address], [place] [address]; ([phone]). Patients son Bryan Fabian ([phone]) will slat pickler pt at 4PM. Patients son RIDGE Arriaza ([phone]) is aware and agreeable. Admin Bryanna ([phone]) is accepting pt. Patient denies visual/auditory hallucinations. Patient denies suicidal or homicidal ideation. Patient will follow up with Dr. Harry Garcia who will monitor and provide her psychotropic medications at the facility. SW coordinate with [facility] admin Mary ([phone]) who stated will send a nurse on 02/22/21. Patient will follow up with Dr. Garza located at [address], [place] [address]; , SW notified of this to patient's son Arsalan SABILLON ([phone]). Patient presents with euthymic mood and congruent affect.
--- NOTE | 2021-02-21 15:49 | NUR ---
Dr. Webster gave an order to D/C hold and D/C to [facility]. Dr. Webster provided a prescriptions and called in the prescriptions at [facility]. Dr. Martinez made aware of the discharge and provided a prescriptions and called in to [facility]. Addendum: 02/21/21 at 1607 by COURTNEY RIVERA RN Pt. is for discharge with Home Health.
--- NOTE | 2021-02-21 15:58 | NUR ---
Medical and Psych prescriptions faxed to [facility] @ [phone] and spoke to Mague over the pharmacy @ [phone] and confirmed they received.
--- NOTE | 2021-02-21 15:58 | NUR ---
Medical and Psych prescriptions faxed to [facility] @ [phone] and spoke to Mague over the pharmacy @ [phone] and confirmed they received.
[2021-02-21 16:00] VITALS: BP 101/51
--- NOTE | 2021-02-21 16:15 | NUR ---
Patient to be discharged to [facility] today, no apparent distress noted, no suicidal ideation, no homicidal ideation no shortness of breath, respirations even and unlabored, denies any pain or discomfort at this time, no grimacing. Patient made aware of the situation, however preferred not to sign her discharge paper work, explained risks, benefits and hospital protocol, still refused, respected patient's wishes 2RNs signed for her paperwork. All belongings taken, inventory list signed by 2RNs. Health teaching provided, verbalized understanding and gratitude. Skin assessment done prior to discharge, skin intact, warm to touch, no pallor or cyanosis noted. Patient has upper back moles/scratches, bilateral hand discolorations, bilateral forearm discolorations, left elbow discolorations, bilateral breast redness, abdominal fold redness/discoloration, sacral redness, bilateral lower extremity dryness/scabs, scaly bilateral foot/brown toenails, and patient preferred not to have pictures taken, explained risks and benefits and hospital protocol thrice, still refused, respected patients wishes. Patient has a splint on her left middle finger, reminded patient the importance of the splint and for her not to remove it, patient verbalized understanding. Name wristband removed prior to discharge, surgical mask provided for patient to use. RN assisted patient going to the hospital parking lot via wheelchair, left unit at 1615pm with son Bryan Fabian, stable condition, exit care documents handed to son, reminded patient and Son Bryan Fabian regarding the Ortho follow up with Taye Morin in 1-2 weeks, and the importance of keeping the splint on her left finger, verbalized understanding and gratitude.
== END 2021-02-21 16:15 | DRG 885 ==
LOC: ER 15:38 → GPS 21:32
PROVIDERS: ADMIT Psychiatry & Neurology Psychosomatic Medicine; ATTEND Internal Medicine
DX: F20.9 Schizophrenia, unspecified (principal); Z68.43 Body mass index [BMI] 50.0-59.9, adult; F29 Unspecified psychosis not due to a substance or known physiological condition; I10 Essential (primary) hypertension; Z79.82 Long term (current) use of aspirin; Z79.899 Other long term (current) drug therapy; Z73.6 Limitation of activities due to disability; E78.5 Hyperlipidemia, unspecified; E66.01 Morbid (severe) obesity due to excess calories; S62.623A Displaced fracture of middle phalanx of left middle finger, initial encounter for closed fracture; X58.XXXA Exposure to other specified factors, initial encounter; Y92.9 Unspecified place or not applicable; F03.90 Unspecified dementia, unspecified severity, without behavioral disturbance, psychotic disturbance, mood disturbance, and anxiety; S63.253A Unspecified dislocation of left middle finger, initial encounter
CPT/HCPCS: 36415; 70450-TC; 71045-TC; 73120-TC; 73130-TC; 80048-TC; 80053-TC; 80061-TC; 80076-TC; 82962-TC; 84443-TC; 84484-TC; 85025-TC; 87081-TC; 97116-TC; 97530-TC; A6403; G0480; J2060; J3490